=== PATIENT | male | born 1975 | race Caucasian/White ===

== ENCOUNTER 2020-08-07 16:21 | Emergency (ER) | payer MEDICAID, OTHER ==
[~2020-08-07] VITALS: Ht 177.8 cm; Wt 244.9 kg
[2020-08-07 18:25] LABS: Basophils # (auto) 0.1 10 ^3/uL (0-0.2); Basophils % (auto) 0.6 % (0.0-2.0); Eosinophils # (auto) 0.1 10 ^3/uL (0-0.8); Eosinophils % (auto) 1.6 % (0.0-7.0); Hematocrit 42.6 % (41.0-53.0); Hemoglobin 14.5 g/dL (13.5-17.5); Lymphocytes # (auto) 1.8 10 ^3/uL (0.4-5.4); Lymphocytes % (auto) 19.4 % (10.0-50.0); Mean Corpuscular Hemoglobin 30.6 pg (28.0-32.0); Monocytes # (auto) 0.5 10 ^3/uL (0-1.3); Monocytes % (auto) 5.1 % (0.0-12.0); Neutrophils # (auto) 6.6 10 ^3/uL (1.6-8.6); Neutrophils % (auto) 73.3 % (37.0-80.0); Nucleated Red Blood Cells % 0.2 %; Platelet Count (auto) 283 10^3/uL (140-450); Red Blood Cells 4.74 10^6/uL (4.5-5.90); Red Cell Distribution Width 13.7 % (11.8-14.3)
[2020-08-07 18:34] LABS: Chloride 108 mmol/L (98-107); Potassium 4.3 mmol/L (3.5-5.1); Sodium 142 mmol/L (136-145)
[2020-08-07 18:42] LABS: INR 1.01 (0.9-1.15); Partial Thromboplastin Time 25.4 sec (23.0-31.2)
[2020-08-07 18:45] LABS: Alanine Aminotransferase 44 U/L (16-61); Albumin 3.7 g/dL (3.4-5.0); Alkaline Phosphatase 75 U/L (45-117); Anion Gap 7 (5-15); Aspartate Aminotransferase 37 U/L (15-37); BUN/Creatinine Ratio 11.5; Bilirubin, Total 0.6 mg/dL (0.2-1.0); Blood Urea Nitrogen 10 mg/dL (7-18); Calcium 9.2 mg/dL (8.5-10.1); Carbon Dioxide 27 mmol/L (21-32); GFR African American 122 mL/min; GFR Non-African American 101 mL/min; Glucose 98 mg/dL (74-106); Magnesium 2.4 mg/dL (1.6-2.6); Total Protein 7.6 g/dL (6.4-8.2)
[2020-08-07 21:00] VITALS: BP 135/81
== END 2020-08-07 22:12 | disposition home or self-care (01) ==
LOC: ER 16:21
DX: R07.89 Other chest pain (principal); R00.2 Palpitations; I10 Essential (primary) hypertension
CPT/HCPCS: 36415; 71045; 80053; 83735; 83880; 84443; 84484; 85025; 85379; 85610; 85730; 93005

== ENCOUNTER 2021-08-30 09:42 | Emergency (ER) | payer MEDICAID ==
[~2021-08-30] VITALS: Ht 177.8 cm; Wt 254.0 kg
[2021-08-30] MEDS ORDERED: IBU600T PO (13:13)
[2021-08-30] MEDS ORDERED: KETOROLAC TROMETH 60MG/2ML VIAL IM ONE (13:15)
[2021-08-30 14:27] VITALS: BP 171/93
== END 2021-08-30 14:39 | disposition home or self-care (01) ==
LOC: ER 09:42
DX: M51.36 Other intervertebral disc degeneration, lumbar region (principal); M79.10 Myalgia, unspecified site
CPT/HCPCS: 72100; 93005; 93971; 99284; J1885